=== PATIENT | male | born 1955 | race Caucasian/White ===

== ENCOUNTER 2020-04-30 18:09 | Emergency (ER) | payer MEDICARE, BC ==
[~2020-04-30] VITALS: Ht 175.3 cm; Wt 93.0 kg
--- NOTE | 2020-04-30 19:41 | NUR ---
19 mL bladder scan
[2020-04-30 20:17] VITALS: BP 120/76
== END 2020-04-30 20:20 | disposition home or self-care (01) ==
LOC: ED 18:30
DX: R33.9 Retention of urine, unspecified (principal)
CPT/HCPCS: 99284